=== PATIENT | female | born 1955 | race Caucasian/White ===

== ENCOUNTER 2018-12-15 16:33 | Outpatient (REF) | payer MEDICARE, SELFPAY ==
[2018-12-15 19:18] LABS: HCT 42.5 % (36.0-46.0); HGB 13.8 g/dL (12.0-15.5); Mean Corp. HGB Concentration 32.5 g/dL (32.0-36.0); Mean Corpuscular Hemoglobin 30.9 pg (27.0-33.0); Mean Corpuscular Volume 95.3 fL (80-95); Mean Platelet Volume 10.1 fL (8.0-11.0); Platelet Count 316 x1000/uL (130-400); RBC 4.46 m/cumm (4.00-5.20); RBC Distribution Width 14.2 % (11.7-14.6); White Blood Cell Count 10.32 k/cumm (4.4-10.8)
[2018-12-15 19:25] LABS: Anion Gap 9.7 mmol/L (3-11); BUN 14 mg/dL (7-18); CO2 25.3 mmol/L (21.0-32.0); Calcium 9.1 mg/dL (8.5-10.1); Chloride 104 mmol/L (98-107); Glucose 102 mg/dL (70-100); Potassium 4.3 mmol/L (3.5-5.1); Sodium 139 mmol/L (136-145)
== END 2018-12-15 16:53 ==
LOC: NCHCN 16:33
PROVIDERS: PCP Internal Medicine; Visit Provider Physician Assistant Medical
DX: R06.02 Shortness of breath (principal)
CPT/HCPCS: 80048; 85027

== ENCOUNTER 2019-06-09 11:21 | Outpatient (REF) | payer MEDICARE, SELFPAY ==
[2019-06-09 19:06] LABS: Anion Gap 9.5 mmol/L (3-11); BUN 16 mg/dL (7-18); CO2 29.5 mmol/L (21.0-32.0); CREATININE 1.07 mg/dL (0.55-1.02); Calculated LDL 204 mg/dL; Chloride 101 mmol/L (98-107); Cholesterol 304 mg/dL (<200); Estimated GFR 51.47 (mL/min/1.73m2); Glucose 113 mg/dL (74-106); HDL Cholesterol 53 mg/dL (40-60); Potassium 4.6 mmol/L (3.5-5.1); Sodium 140 mmol/L (136-145); TSH 3.41 uIU/mL (0.36-3.74); Triglyceride 235 mg/dL (<150)
== END 2019-06-09 11:41 ==
LOC: NCHCN 11:21
PROVIDERS: PCP Internal Medicine; Visit Provider Nurse Practitioner Family
DX: E78.5 Hyperlipidemia, unspecified (principal); R00.2 Palpitations
CPT/HCPCS: 80048; 80061; 84443

== ENCOUNTER 2020-03-25 13:13 | Outpatient (REF) | payer MEDICARE, SELFPAY ==
[2020-03-25 19:49] LABS: ALT 187 U/L (14-59); AST 100 U/L (15-37); Albumin 3.6 g/dL (3.4-5.0); Alkaline Phosphatase 411 U/L (46-116); Anion Gap 6.6 mmol/L (3-11); BUN 19 mg/dL (7-18); Bilirubin, Total 0.4 mg/dL (0.2-1.0); CO2 29.4 mmol/L (21.0-32.0); CREATININE 1.01 mg/dL (0.55-1.02); Calcium 9.2 mg/dL (8.5-10.1); Calculated LDL 87 mg/dL (<100); Chloride 105 mmol/L (98-107); Cholesterol 159 mg/dL (<200); Estimated GFR 54.84 (mL/min/1.73m2); Glucose 97 mg/dL (74-106); HDL Cholesterol 60 mg/dL (40-60); Potassium 4.3 mmol/L (3.5-5.1); Sodium 141 mmol/L (136-145); TSH (W/Ref FT4) 2.12 uIU/mL (0.36-3.74); Total Protein 6.8 g/dL (6.4-8.2); Triglyceride 64 mg/dL (<150)
== END 2020-03-25 13:33 ==
LOC: NCHCN 13:13
PROVIDERS: PCP Internal Medicine; Visit Provider Physician Assistant
DX: E78.5 Hyperlipidemia, unspecified (principal); I10 Essential (primary) hypertension
CPT/HCPCS: 80053; 80061; 84443

== ENCOUNTER 2020-04-01 19:31 | Outpatient (REF) | payer MEDICARE, SELFPAY ==
[2020-04-01 19:22] LABS: Iron 106 ug/dL (50-170); Total Iron Binding Capacity 294 ug/dL (250-450); Transferrin Sat 36 % (15-50)
[2020-04-01 19:59] LABS: Ferritin 227 ng/mL (8-252); GGT 308 U/L (5-55)
[2020-04-04 14:37] LABS: Hepatitis A Antibody IgM Negative (Negative); Hepatitis B Core Antibody Negative (Negative); Hepatitis B surface Ag Negative (Negative); Hepatitis C Ab w Rflx HCV PCR Negative (Negative)
[2020-04-04 15:09] LABS: ANA Interpretation Positive (Negative); ANA Titer Pattern 1:320 Homogeneous
[2020-04-05 15:07] LABS: Smooth Muscle Ab Screen Negative (Negative)
[2020-04-08 15:01] LABS: Mitochondrial Ab, M2 <0.1 U
== END 2020-04-01 19:51 ==
LOC: NCHCN 19:31
PROVIDERS: PCP Internal Medicine; Visit Provider Physician Assistant
DX: R74.8 Abnormal levels of other serum enzymes (principal)
CPT/HCPCS: 83516; 86704; 86709; 86803; 87340; 82728; 82977; 83540; 83550; 86038; 86255

== ENCOUNTER 2020-05-17 12:24 | Outpatient (REF) | payer MEDICARE, SELFPAY ==
[2020-05-17 20:39] LABS: ALT 71 U/L (14-59); AST 44 U/L (15-37); Albumin 3.8 g/dL (3.4-5.0); Alkaline Phosphatase 267 U/L (46-116); BUN 15 mg/dL (7-18); Bilirubin, Total 0.5 mg/dL (0.2-1.0); CREATININE 1.06 mg/dL (0.55-1.02); Calcium 9.3 mg/dL (8.5-10.1); Chloride 103 mmol/L (98-107); Estimated GFR 51.86 (mL/min/1.73m2); Glucose 98 mg/dL (74-106); Sodium 140 mmol/L (136-145); Total Protein 6.9 g/dL (6.4-8.2)
== END 2020-05-17 12:44 ==
LOC: NCHCN 12:24
PROVIDERS: PCP Internal Medicine; Visit Provider Physician Assistant
DX: K75.4 Autoimmune hepatitis (principal)
CPT/HCPCS: 80053

== ENCOUNTER 2020-05-27 06:08 | Day surgery (SDC) | payer MEDICARE, SELFPAY ==
[2020-05-27 06:15] VITALS: BP 123/73; PULSE 71; RESP 18; TEMP 37; O2SAT 96
[2020-05-27] MEDS: Tropicam./Phenyleph. (1/2.5%) 5 ML BTL ×3 (06:38→06:46)
[2020-05-27] MEDS: Lidocaine 1% Pres-Free 5 ML VIAL (07:32)
[2020-05-27] MEDS: Balanced Salt Soln.-PLUS 500 ML BAG (07:32)
[2020-05-27] MEDS: Moxifloxacin-PF 1 MG/ML VIAL (07:33)
[2020-05-27] MEDS: Lidocaine 2% Jelly 6 ML SYR (07:34)
[2020-05-27] MEDS: Povidone-Iodine Ophth 30 ML BTL (07:35)
[2020-05-27] MEDS: Duovisc Viscoelastic System EACH 1 EACH (07:35)
[2020-05-27] MEDS: Tetracaine 0.5% 4 ML BTL (07:36)
--- NOTE | 2020-05-27 07:56 | W.PM.DSUDISC ---
Discharge Plan Disposition Patient Disposition: HOME Condition: Good Discharge Details Attending Provider: Enrike Stoner Primary Care Provider: Carlie Davenport Home Meds and New Rx's Prescriptions: No Action atorvastatin 40 mg Tablet 40 mg PO HS RF: 0 ibuprofen 800 mg Tablet 800 mg PO Q8H PRN RF: 0 benzonatate 100 mg Capsule 100 mg PO Q8H PRNRF: 0 triamterene-hydrochlorothiazid 37.5-25 mg Tablet 1 tab PO DAILY RF: 0 albuterol sulfate [Ventolin HFA] 90 mcg/actuation Hfa Aerosol Inhaler 1 - 2 puff INHALATION DIRECTED RF: 0 omeprazole 20 mg Tablet,Delayed Release (Dr/Ec) 20 mg PO DAILY RF: 0 Discharge Instructions Stand Alone Forms: Post-op Topical Cataract, Little Lombardi (DSU) Discharge Orders Discharge Orders: Discharge Order (Routine); Ordered 05/27/20 Ordered By: Enrike Stoner DS: Diagnosis Discharge Diagnosis (1) Nuclear sclerotic cataract of right eye: Status: Resolved
--- NOTE | 2020-05-27 07:57 | ROE_ITS ---
Date of service: 05/27/20 Time of Service: 07:57 Operative Note Operative Note DATE OF PROCEDURE: 05/27/20 PRE-OP DIAGNOSIS: Nuclear cataract, right eye POST-OP DIAGNOSIS: same PROCEDURE: Cataract extraction using phacoemulsification with intraocular lens implant, right eye SURGEON: Enrike Stoner ANESTHESIA: MAC and local (sub-tenon's anesthetic infiltration) ESTIMATED BLOOD LOSS: 0 PATHOLOGY: none sent COMPLICATIONS: None Patient was transported to: same day Patient's condition: stable Implants: Daniel and Daniel Vision / [employer] Tecnis ZCB00 intr aocular lens Indications: Progressive decreased vision due to cataract, right eye Procedure Description: CATARACT SURGERY OPERATIVE REPORT PREOPERATIVE DIAGNOSIS: Nuclear cataract, right eye POSTOPERATIVE DIAGNOSIS: Same OPERATION: Cataract extraction using phacoemulsification with posterior chamber intraocular lens implant, right eye. IOL: IOL Senior National Account Manager/Model: J&J Vision / ZEHRA Tecnis ZCB00 IOL Power: + 22.50 diopters IOL Serial Number: [id number] Optic Diameter: 6.0mm Haptic/Overall Diameter: 13.0mm PHACO INFO: Fadi [employer] Pharmaceuticalurion Vision System with OZil and Active Fluidics Cumulative Dispersed Energy (CDE): 4.86 seconds SURGEON: Enrike Stoner MD, EMILY ANESTHESIA: Monitored Anesthesia Care (MAC), with local sub-tenon's anesthetic infiltration COMPLICATIONS: None SPECIMENS: None INDICATIONS FOR PROCEDURE: The patient is a 74-year-old lady with history of diminished visual acuity in the development of nuclear cataract. She is significantly symptomatic cataract surgery and attempt to improve and maximize her vision. PROCEDURE: The correct surgical eye was identified and marked as the right eye and the pupil was dilated in the preoperative area using mydriatics and cycloplegics. The dilated pupil size was 6.5 mm. Oral sedation was administered in the form of an Imprimis MKO Melt (midazolam 3mg/ketamine 25mg/ondansetron 2mg). The patient was brought to the operating room where cardiopulmonary monitoring was instituted and surgical time-out was performed, confirming the correct operative eye and IOL power. Topical anesthesia was administered and ophthalmic povidone-iodine 5% was instilled into the conjunctival fornices. Lidocaine gel was applied to the cornea and the dionne-ocular area was prepped with Betadine 10% solution and draped in the usual sterile fashion for intraocular surgery, including an aperture drape. A Tegaderm transparent film dressing was cut in half and used to cover the lashes and lid margins. Care was taken to sequester the lashes and lid margins under the Tegaderm dressing. A lid speculum was placed between the lids of the operative eye and the Denny-Tulio operating microscope was maneuvered into position. Jeanne scissors were then used to make a conjunctival buttonhole approximately 6mm posterior to the limbus in the inferonasal quadrant. Blunt dissection was carried out to expose bare sclera, and a blunt-tipped sub-tenon?s anesthesia cannula was introduced and passed posteriorly along the globe where non- preserved plain lidocaine was injected into posterior sub-Tenon?s space. A sideport knife was used to make a paracentesis port inferiortemporally. Intraocular phenylephrine/lidocaine was injected into the anterior chamber. The anterior chamber was then filled with viscoelastic. A 2.4mm keratome knife was used to create a half-thickness groove at the limbus and then to construct a three-plane near-clear corneal tunnel extending 2.0mm into clear cornea in the superiortemporal position. . A flap was raised on the anterior capsule and capsulorhexis forceps were used to complete a continuous curvilinear capsulorhexis of 5.0 mm. Balanced salt solution was then used to perform cortical cleaving hydrodissection and nuclear hydrodelineation until the lens could be freely rotated within the capsular bag. The lens nucleus was then disassembled and removed within the capsular bag and iris plane using phacoemulsification. Residual cortical material was removed using the I/A handpiece. The posterior capsule was carefully polished to remove as much residual lens epithelial cells as safely possible. The capsular bag was then inflated and the anterior chamber deepened with viscoelastic. The lens implant described above was inserted into the capsular bag using the ZEHRA [place] Injector. A Kuglen hook was used to dial the IOL into position. Residual viscoelastic was then removed first from posterior to the IOL, then from the anterior chamber using the I/A handpiece. The lens implant was noted to center nicely within the capsular bag. The incisions were stromally hydrated, and the anterior chamber was reformed using BSS. Then 0.5cc of moxifloxacin 1.0mg/ml were injected into the capsular bag and anterior chamber. The incisions were checked with a Weck spear and found to be secure. Several drops of ophthalmic povidone-iodine 5% were then applied to the eye followed by two drops of Imprimis combination prednisolone/moxifloxacin/nepafenac solution. The drapes were removed and a clear plastic protective eye shield was placed over the eye. The patient was then returned to Same Day Surgery in stable condition.
[2020-05-27 08:22] VITALS: BP 132/74; PULSE 69; RESP 16; TEMP 37; O2SAT 98
== END 2020-05-27 08:35 | disposition home or self-care (01) ==
PROVIDERS: PCP Nurse Practitioner Family; Visit Provider Ophthalmology
PROC: (CPT 66984; principal; 2020-05-27 07:30)
DX: H25.11 Age-related nuclear cataract, right eye (principal)
CPT/HCPCS: 66984; V2632

== ENCOUNTER 2020-06-10 10:01 | Day surgery (SDC) | payer MEDICARE, SELFPAY ==
[2020-06-10 10:21] VITALS: BP 144/78; PULSE 64; RESP 16; TEMP 36.6; O2SAT 98
[2020-06-10] MEDS: Tropicam./Phenyleph. (1/2.5%) 5 ML BTL OS ×3 (10:25→10:34)
[2020-06-10] MEDS: Lidocaine 2% Jelly 6 ML SYR (11:27)
[2020-06-10] MEDS: Tetracaine 0.5% 4 ML BTL OS (11:28)
[2020-06-10] MEDS: Povidone-Iodine Ophth 30 ML BTL (11:31)
[2020-06-10] MEDS: Moxifloxacin-PF 1 MG/ML VIAL (11:31)
[2020-06-10] MEDS: Balanced Salt Soln.-PLUS 500 ML BAG (11:31)
[2020-06-10] MEDS: Lidocaine 1% Pres-Free 5 ML VIAL (11:31)
[2020-06-10] MEDS: Duovisc Viscoelastic System EACH 1 EACH (11:31)
--- NOTE | 2020-06-10 12:54 | W.PM.DSUDISC ---
Discharge Plan Disposition Patient Disposition: HOME Condition: Good Discharge Details Attending Provider: Enrike Stoner Primary Care Provider: Carlie Davenport Home Meds and New Rx's Prescriptions: No Action atorvastatin 40 mg Tablet 40 mg PO HS RF: 0 ibuprofen 800 mg Tablet 800 mg PO Q8H PRN RF: 0 benzonatate 100 mg Capsule 100 mg PO Q8H PRNRF: 0 triamterene-hydrochlorothiazid 37.5-25 mg Tablet 1 tab PO HS RF: 0 albuterol sulfate [Ventolin HFA] 90 mcg/actuation Hfa Aerosol Inhaler 1 - 2 puff INHALATION DIRECTED RF: 0 omeprazole 20 mg Tablet,Delayed Release (Dr/Ec) 20 mg PO HS RF: 0 Discharge Instructions Stand Alone Forms: Post-op Topical Cataract, Little Lombardi (DSU) Discharge Orders Discharge Orders: Discharge Order (Routine); Ordered 06/10/20 Ordered By: Enrike Stoner Discharge Data Discharge Date/Time-TO BE ENTERED AT DEPARTURE: 06/10/20 12:21 Discharge Comment: Pt escorted out to vehicle. DS: Diagnosis Discharge Diagnosis (1) Nuclear sclerotic cataract of left eye: Status: Resolved
--- NOTE | 2020-06-10 12:55 | ROE_ITS ---
Date of service: 06/10/20 Time of Service: 12:55 Operative Note Operative Note DATE OF PROCEDURE: 06/10/20 PRE-OP DIAGNOSIS: Nuclear cataract, left eye POST-OP DIAGNOSIS: same PROCEDURE: Cataract extraction using phacoemulsification with intraocular lens implant, left eye SURGEON: Enrike Stoner ANESTHESIA: MAC and local (sub-tenon's anesthetic infiltration) PATHOLOGY: none sent COMPLICATIONS: None Patient was transported to: same day Patient's condition: stable Implants: Daniel and Daniel Vision / [employer] Opt[employer] Tecnis ZCB00 Indications: Progressive decreased vision due to cataract, left eye Procedure Description: CATARACT SURGERY OPERATIVE REPORT PREOPERATIVE DIAGNOSIS: Nuclear cataract, left eye POSTOPERATIVE DIAGNOSIS: Same OPERATION: Cataract extraction using phacoemulsification with posterior chamber intraocular lens implant, left eye. IOL: IOL Healthcare Interpreter/Model: J&J Vision / ZEHRA Tecnis ZCB00 IOL Power: + 23.0 diopters IOL Serial Number: [id number] Optic Diameter: 6.0mm Haptic/Overall Diameter: 13.0mm PHACO INFO: Fadi [employer]urion Vision System with OZil and Active Fluidics Cumulative Dispersed Energy (CDE): 5.48 seconds SURGEON: Enrike Stoner MD, EMILY ANESTHESIA: Monitored Anesthesia Care (MAC), with local sub-tenon's anesthetic infiltration COMPLICATIONS: None SPECIMENS: None INDICATIONS FOR PROCEDURE: Patient is a 64-year-old lady with history of diminished visual acuity in both eyes secondary to the development of bilateral nuclear cataract. She has already undergone cataract surgery in her right eye and is doing well postoperatively. She now presents for cataract surgery in the left eye. PROCEDURE: The correct surgical eye was identified and marked as the left eye and the pupil was dilated in the preoperative area using mydriatics and cycloplegics. The dilated pupil size was 6.0 mm. No oral sedation was given. The patient was brought to the operating room where cardiopulmonary monitoring was instituted and surgical time-out was performed, confirming the correct operative eye and IOL power. Topical anesthesia was administered and ophthalmic povidone-iodine 5% was instilled into the conjunctival fornices. Lidocaine gel was applied to the cornea and the dionne-ocular area was prepped with Betadine 10% solution and draped in the usual sterile fashion for intraocular surgery, including an aperture drape. A Tegaderm transparent film dressing was cut in half and used to cover the lashes and lid margins. Care was taken to sequester the lashes and lid margins under the Tegaderm dressing. A lid speculum was placed between the lids of the operative eye and the Denny-Tulio operating microscope was maneuvered into position. Jeanne scissors were then used to make a conjunctival buttonhole approximately 6mm posterior to the limbus in the inferonasal quadrant. Blunt dissection was carried out to expose bare sclera, and a blunt-tipped sub-tenon?s anesthesia cannula was introduced and passed posteriorly along the globe where non- preserved plain lidocaine was injected into posterior sub-Tenon?s space. A sideport knife was used to make a paracentesis port superior/superiortemporally. Intraocular phenylephrine/lidocaine was injected into the anterior chamber. The anterior chamber was then filled with viscoelastic. A 2.4mm keratome knife was used to create a half-thickness groove at the limbus and then to construct a three-plane near-clear corneal tunnel extending 2.0mm into clear cornea in the temporal position. . A flap was raised on the anterior capsule and capsulorhexis forceps were used to complete a continuous curvilinear capsulorhexis of 5.0 mm. Balanced salt solution was then used to perform cortical cleaving hydrodissection and nuclear hydrodelineation until the lens could be freely rotated within the capsular bag. The lens nucleus was then disassembled and removed within the capsular bag and iris plane using phacoemulsification. Residual cortical material was removed using the 45-degree angled silicone I/A tip with 0.3mm port. The posterior capsule was carefully polished to remove as much residual lens epithelial cells as safely possible. The capsular bag was then inflated and the anterior chamber deepened with viscoelastic. The lens implant described above was inserted into the capsular bag using the ZEHRA [place] Injector. A Kuglen hook was used to dial the IOL into position. Residual viscoelastic was then removed first from posterior to the IOL, then from the anterior chamber using the I/A handpiece. The lens implant was noted to center nicely within the capsular bag. The incisions were stromally hydrated, and the anterior chamber was reformed using BSS. Then 0.5cc of moxifloxacin 1.0mg/ml were injected into the capsular bag and anterior chamber. The incisions were checked with a Weck spear and found to be secure. Several drops of ophthalmic povidone-iodine 5% were then applied to the eye followed by two drops of Imprimis combination prednisolone/moxifloxacin/nepafenac solution. The drapes were removed and a clear plastic protective eye shield was placed over the eye. The patient was then returned to Same Day Surgery in stable condition.
== END 2020-06-10 12:21 | disposition home or self-care (01) ==
LOC: SUR 10:01
PROVIDERS: PCP Nurse Practitioner Family; Visit Provider Ophthalmology
PROC: (CPT 66984; principal; 2020-06-10 12:00)
DX: H25.12 Age-related nuclear cataract, left eye (principal); Z98.41 Cataract extraction status, right eye; Z96.1 Presence of intraocular lens
CPT/HCPCS: 66984; V2632

== ENCOUNTER 2020-07-18 14:33 | Outpatient (REF) | payer MEDICARE, SELFPAY ==
[2020-07-18 19:14] LABS: ALT 60 U/L (14-59); AST 35 U/L (15-37); Albumin 3.4 g/dL (3.4-5.0); Alkaline Phosphatase 150 U/L (46-116); Bilirubin, Total 0.3 mg/dL (0.2-1.0); Total Protein 6.4 g/dL (6.4-8.2)
[2020-07-18 20:07] LABS: Bilirubin, Direct 0.09 mg/dL (0.00-0.20)
== END 2020-07-18 14:53 ==
LOC: LBN 14:33
PROVIDERS: PCP Internal Medicine; Visit Provider Internal Medicine Gastroenterology
DX: R74.8 Abnormal levels of other serum enzymes (principal)
CPT/HCPCS: 80076

== ENCOUNTER 2020-08-24 15:12 | Outpatient (REF) | payer MEDICARE, SELFPAY ==
[2020-08-24 16:24] LABS: ALT 50 U/L (14-59); AST 25 U/L (15-37); Albumin 3.7 g/dL (3.4-5.0); Alkaline Phosphatase 160 U/L (46-116); Bilirubin, Direct 0.12 mg/dL (0.00-0.20); Bilirubin, Total 0.4 mg/dL (0.2-1.0); Total Protein 7.1 g/dL (6.4-8.2)
== END 2020-08-24 15:13 | disposition home or self-care (01) ==
LOC: NCHCN 15:12
PROVIDERS: PCP Internal Medicine; Visit Provider Internal Medicine Gastroenterology
DX: K71.9 Toxic liver disease, unspecified (principal); R74.8 Abnormal levels of other serum enzymes
CPT/HCPCS: 80076

== ENCOUNTER 2020-09-29 22:10 | Outpatient (REF) | payer MEDICARE, SELFPAY ==
[2020-09-29 19:45] LABS: ALT 63 U/L (14-59); AST 30 U/L (15-37); Albumin 3.6 g/dL (3.4-5.0); Alkaline Phosphatase 172 U/L (46-116); Bilirubin, Direct 0.1 mg/dL (0.0-0.2); Bilirubin, Total 0.4 mg/dL (0.2-1.0); Total Protein 6.8 g/dL (6.4-8.2)
== END 2020-09-29 22:11 | disposition home or self-care (01) ==
LOC: NCHCN 22:10
PROVIDERS: PCP Internal Medicine; Visit Provider Internal Medicine Gastroenterology
DX: K71.9 Toxic liver disease, unspecified (principal); R74.8 Abnormal levels of other serum enzymes
CPT/HCPCS: 80076

== ENCOUNTER 2020-11-03 10:49 | Outpatient (REF) | payer MEDICARE, SELFPAY ==
--- OUTSIDE RECORDS SUMMARY | 2020-11-03 10:55 | XMS_ITS ---
:1955 Author Care Team Providers Name Role Phone PREETI KOWALSKI NP Primary Care Provider [phone] MONI TAI MD General Surgeon [phone] Allergies Code Code System Name Reaction Severity Status Onset NKDA ? Medications Name Status Start Date Stop Date ? ? Anoro Ellipta 62.5 mcg-25 mcg/actuation Completed ? 05/18/2020 powder for inhalation atorvastatin 40 mg tablet Active ? Not av ailable TAKE ONE TABLET BY MOUTH AT BEDTIME azithromycin 250 mg tablet Completed ? 05/18 Breo Ellipta 100 mcg-25 mcg/dose powder Completed ? 05/18/2020 for inhalation clindamycin HCl 300 mg capsule Active ? N ot available Take 1 capsule every 6 hours by oral route. cyclobenzaprine 10 mg tablet Completed ? 05/2020 Take 1 tablet 3 times a day by oral route as needed. hydrocodone 5 mg-acetaminophen 325 mg tablet Active ? Not available Take 1 tablet every 6 hours by oral route. ibuprofen 800 mg tablet Active ? Not avai lable Take 1 tablet 3 times a day by oral route as needed. Incruse Ellipta 62.5 mcg/actuation Completed ? 05/18/2020 powder for inhalation naproxen 500 mg tablet Completed ? 0 Take 1 tablet twice a day by oral route as needed. omeprazole 20 mg capsule,delayed release Active ? Not available Take 1 capsule every day by oral route. prednisone 10 mg tablet Completed ? 05/18/20 20 Tessalon Perles 100 mg capsule Active ? N ot available Take 1 capsule every 8 hours by oral route as needed. triamterene 37.5 mg-hydrochlorothiazide 25 mg capsule Active ? Not available TAKE ONE CAPSULE BY MOUTH EVERY DAY Tylenol-Codeine #3 300 mg-30 mg tablet Completed ? 05/18/2020 Take 1 tablet every 6 hours by oral route at bedtime. Ventolin HFA 90 mcg/actuation aerosol inhaler Active ? Not available INHALE ONE TO TWO PUFFS BY MOUTH EVERY 4 6 HOURS NEEDED FOR SHORTNESS OF BREATH / WHEEZE / COUGH Problems Name Status Onset Date Source ? Hyperlipidemia Active 05/18/2020 ? Cataract Active 05/18/2020 ? Hypertensive Disorder Active 05/18/2020 ? Asthma Active 05/18/2020 ? Autoimmune Hepatitis Active 05/18/2020 ? Prediabetes Active 05/18/2020 ? Alkaline Phosphatase Raised Active 05/18/2020 ? Elevated Liver Enzymes Level Active 05/18/2020 ? Palpation Active 05/18/2020 ? History of Polyp of Colon Active ? Histor y Procedures Date Name Performed by ? 12/03/2013 Colonoscopy Information not avai lable Notes: colon polyps 10/17/2004 10/17/2004 EGD/Endoscopy Information not avai lable ? Appendectomy Information not avai lable ? Hysterectomy Information not avai lable ? Tonsillectomy Information not avai lable Results Lab Results Date Name Specimen Result Interpretation Description Value Range Status Address ? 12/23/2017 CBC W/ BLD - Wbc 8.5 5.0-10.0 Final [facility] Auto Diff 10*3/uL 10*3/uL Hospi eren Lab (Internal) : [address] ? ? BLD - Rbc 4.25 4.10-5.[address] [facility] ountry 10*6/uL 10*6/uL Hospital Lab (Internal) : [address] ? ? BLD - Hgb 13.3 g/dL 12.0-16.0 Final [facility] g/dL Hospital L ab (Internal) : [address] ? ? BLD - Hct 41.4 % 37.0-47.[address] [facility] ount % Hospital L ab (Internal) : [address] ? ? BLD High Mcv 97.4 fL 80.0-96.0 Final [facility] fL Hospital L ab (Internal) : [address] ? ? BLD - Mch 31.3 pg 26.0-32.0 Final [facility] pg Hospital L ab (Internal) : [address] ? ? BLD - Mchc 32.1 g/dL 31.0-35.0 Final [facility] g/dL Hospital L ab (Internal) : [address] t ? ? BLD - Rdw 13.5 % 11.5-14.[address] [facility] ount % Hospital L ab (Internal) : [address] ? ? BLD - Plt 264 130-450 Final [facility] ntry 10*3/uL 10*3/uL Hospital Lab (Internal) : [address] ? ? BLD - Anc 5.45 ? Final [facility] try 10*3/uL Hospital Lab (Internal) : [address] ? ? BLD - Neutro 64.3 % 40.0-75.0 Final [facility] % Hospital L ab (Internal) : [address] ? ? BLD - Lymph 29.2 % 20.0-50.[address] [facility] % Hospital L ab (Internal) : [address], [place] ? ? BLD - [place] 5.2 % 2.0-10.0 % Final [facility] Hospital L ab (Internal) : [address], [place] ? ? BLD Low Eos 0.5 % 1.0-6.0 % Final [facility] Hospital L ab (Internal) : [address] [place] [place] ? ? BLD - Baso 0.4 % 0.0-1.0 % Final [facility] L ab (Internal) : [address] [place] ? ? BLD - Ig 0.4 % 0.0-0.9 % Final [facility] L ab (Internal) : [address], [place] 12/23/2017 BMP, S - g/r 93 mg/dL 74-106 Final [facility] Serum or mg/dL Hospital Lab Plasma (Internal) : [address], [place] ? ? S - Bun 14 mg/dL 7-17 mg/dL Final [facility] Hospital L ab (Internal) : [address] ? ? S - Crea 0.80 0.52-1.04 Final [facility] mg/dL mg/dL Hospital L ab (Internal) : [address] t ? ? S - Ca 9.1 mg/dL 8.4-10.2 Final [place] mg/dL Hospital L ab (Internal) : [address] t ? ? S - Na 139 137-145 [facility] [place] [facility] mmol/L mmol/L Hospital L ab (Internal) : [address] t ? ? S - K 4.5 3.5-5.1 Final [place] [facility] mmol/L mmol/L Hospital L ab (Internal) : [address] t ? ? S - Cl 106 98-107 Final [place] [facility] mmol/L mmol/L Hospital L ab (Internal) : [address] ? ? S - Tco2 23.0 22.0-30.0 [facility] mmol/L mmol/L Hospital L ab (Internal) : [address] t 12/23/2017 D-dimer, PLASMA - Dimq 0.23 mg/L 0.00-0.50 Final [place] Quant, mg/L Hospital L ab Plasma (Internal) : [address] 05/19/2017 Lipase, S ? Lip 41 U/L 23-300 U/L Final [facility] Serum or Hospital Lab Plasma (Internal) : [address] 05/19/2017 CMP, S ? g/r 98 mg/dL 74-106 Final [facility] Serum or mg/dL Hospital Lab Plasma (Internal) : [address] t ? ? S ? Bun 13 mg/dL 7-17 mg/dL Final [facility] Hospital L ab (Internal) : [address] t ? ? S ? Crea 0.80 0.52-1.04 Final [place] [facility] mg/dL mg/dL Hospital L ab (Internal) : [address] t ? ? S ? Ca 9.4 mg/dL 8.4-10.2 Final [place] mg/dL Hospital L ab (Internal) : [address] t ? ? S ? Na 142 137-145 Final [place] [facility] mmol/L mmol/L Hospital L ab (Internal) : [address] t ? ? S ? K 3.7 3.5-5.1 Final [place] [facility] mmol/L mmol/L Hospital L ab (Internal) : [address] t ? ? S ? Cl 106 98-107 Final [facility] try mmol/L mmol/L Hospital L ab (Internal) : [address] t ? ? S ? Tco2 24.0 22.0-30.[address] [facility] ountry mmol/L mmol/L Hospital L ab (Internal) : [address] t ? ? S ? Tp 7.1 g/dL 6.3-8.[address] [facility] ountry g/dL Hospital L ab (Internal) : [address] t ? ? S ? Alb 4.1 g/dL 3.5-5.[address] [facility]untry g/dL Hospital L ab (Internal) : [address] t ? ? S ? Tbil 0.5 mg/dL 0.2-1.3 Final [facility] mg/dL Hospital L ab (Internal) : [address] t ? ? S High Alp 138 U/L 38-126 U/L Final [facility] Hospital L ab (Internal) : [address] t ? ? S ? Alt 46 U/L 9-52 U/L Final [facility] unt (Sgpt) Hospital L ab (Internal) : [address] t ? ? S ? Ast 24 U/L 14-36 U/L Final [facility] ount (Sgot) Hospital L ab (Internal) : [address] t 05/19/2017 CBC W/ BLD ? Wbc 7.3 5.0-10.0 Final [facility] Auto Diff 10*3/uL 10*3/uL Hospi eren Lab (Internal) : [address] t ? ? BLD ? Rbc 4.38 4.10-5.[address] [facility] ountry 10*6/uL 10*6/uL Hospital Lab (Internal) : [address] t ? ? BLD ? Hgb 13.8 g/dL 12.0-16.0 Final [facility] g/dL Hospital L ab (Internal) : [address] t ? ? BLD ? Hct 41.5 % 37.0-47.[address] [facility] ount % Hospital L ab (Internal) : [address] ? ? BLD ? Mcv 94.7 fL 80.0-96.0 Final [facility] fL Hospital L ab (Internal) : [address] ? ? BLD ? Mch 31.5 pg 26.0-32.0 Final [facility] pg Hospital L ab (Internal) : [address] ? ? BLD ? Mchc 33.3 g/dL 31.0-35.0 Final [facility] g/dL Hospital L ab (Internal) : [address] ? ? BLD ? Rdw 13.2 % 11.5-14.[address] [facility] ount % Hospital L ab (Internal) : [address] ? ? BLD ? Plt 298 130-450 Final [facility] ntry 10*3/uL 10*3/uL Hospital Lab (Internal) : [address] ? ? BLD ? Anc 3.92 ? Final [facility] try 10*3/uL Hospital Lab (Internal) : [address] ? ? BLD ? Neutro 53.6 % 40.0-75.0 Final [facility] % Hospital L ab (Internal) : [address] ? ? BLD ? Lymph 38.2 % 20.0-50.0 Final [facility] % Hospital L ab (Internal) : [address] ? ? BLD ? [place] 6.8 % 2.0-10.0 % Final [facility] Hospital L ab (Internal) : [address] ? ? BLD Low Eos 0.5 % 1.0-6.0 % Final [facility] Hospital L ab (Internal) : [address] ? ? BLD ? Baso 0.5 % 0.0-1.0 % Final [facility] Hospital L ab (Internal) : [address] ? ? BLD ? Ig 0.4 % 0.0-0.9 % Final [facility] Hospital L ab (Internal) : [address] Past Encounters 05/19/2020 Screening for Malignant Neoplasm of [place] n; Abdominal Pain Moni Tai MD: [address], [place] [address], Ph. Social History Tobacco Smoking Status Former Smoker Notes: quit 24 01 Vaccine List None recorded. Plan of Care Reminders Provider Appointments None ? ? recorded. Lab None ? ? recorded. Referral None ? ? recorded. Procedures None ? ? recorded. Surgeries None ? ? recorded. Imaging None ? ? recorded. Vitals 05/19/2020 12:30PM Office 15 Height Weight BMI Blood Pressure 156.21 cm 87.54 kg 35.9 kg/m2 140/72 mm[Hg] 05/17/2020 Height Weight BMI Blood Pressure 156.21 cm 87.54 kg 35.9 kg/m2 128/78 mm[Hg]
[2020-11-03 15:40] LABS: ALT 38 U/L (14-59); AST 17 U/L (15-37); Albumin 3.5 g/dL (3.4-5.0); Alkaline Phosphatase 140 U/L (46-116); Bilirubin, Direct 0.1 mg/dL (0.0-0.2); Bilirubin, Total 0.4 mg/dL (0.2-1.0); Total Protein 6.7 g/dL (6.4-8.2)
== END 2020-11-03 10:50 | disposition home or self-care (01) ==
LOC: LBN 10:49
PROVIDERS: PCP Nurse Practitioner Family; Visit Provider Internal Medicine Gastroenterology
DX: K71.9 Toxic liver disease, unspecified (principal); R74.8 Abnormal levels of other serum enzymes
CPT/HCPCS: 80076

== ENCOUNTER 2021-03-30 16:12 | Outpatient (REF) | payer MEDICARE, SELFPAY ==
[2021-03-30 19:32] LABS: ALT 39 U/L (14-59); AST 23 U/L (15-37); Albumin 3.5 g/dL (3.4-5.0); Alkaline Phosphatase 150 U/L (46-116); Anion Gap 6.8 mmol/L (3-11); BUN 18 mg/dL (7-18); Bilirubin, Total 0.6 mg/dL (0.2-1.0); CO2 29.2 mmol/L (21.0-32.0); CREATININE 1.1 mg/dL (0.55-1.02); Calcium 8.9 mg/dL (8.5-10.1); Chloride 106 mmol/L (98-107); Estimated GFR 49.54 (mL/min/1.73m2); Glucose 98 mg/dL (74-106); Potassium 4.3 mmol/L (3.5-5.1); Sodium 142 mmol/L (136-145); Total Protein 6.5 g/dL (6.4-8.2)
[2021-04-01 14:13] LABS: Mitochondrial Ab, M2 <0.1 U
== END 2021-03-30 16:13 | disposition home or self-care (01) ==
LOC: NCHCN 16:12
PROVIDERS: PCP Internal Medicine; Visit Provider Physician Assistant
DX: R74.8 Abnormal levels of other serum enzymes (principal); Z83.79 Family history of other diseases of the digestive system
CPT/HCPCS: 80053; 83516

== ENCOUNTER 2021-09-27 20:38 | Outpatient (REF) | payer MEDICARE, SELFPAY ==
[2021-09-27 20:28] LABS: ALT 38 U/L (14-59); AST 23 U/L (15-37); Albumin 3.5 g/dL (3.4-5.0); Alkaline Phosphatase 122 U/L (46-116); Bilirubin, Direct 0.1 mg/dL (0.0-0.2); Bilirubin, Total 0.5 mg/dL (0.2-1.0); Total Protein 6.5 g/dL (6.4-8.2)
== END 2021-09-27 20:39 | disposition home or self-care (01) ==
LOC: LBN 20:38
PROVIDERS: PCP Internal Medicine; Visit Provider Internal Medicine Gastroenterology
DX: R74.8 Abnormal levels of other serum enzymes (principal); K71.9 Toxic liver disease, unspecified
CPT/HCPCS: 80076

== ENCOUNTER 2022-03-28 16:00 | Outpatient (REF) | payer MEDICARE, SELFPAY ==
[2022-03-28 20:29] LABS: ALT 34 U/L (14-59); AST 21 U/L (15-37); Albumin 3.5 g/dL (3.4-5.0); Alkaline Phosphatase 119 U/L (46-116); Anion Gap 8.9 mmol/L (3-11); BUN 24 mg/dL (7-18); Bilirubin, Total 0.3 mg/dL (0.2-1.0); CO2 27.1 mmol/L (21.0-32.0); CREATININE 1.2 mg/dL (0.55-1.02); Calcium 9.5 mg/dL (8.5-10.1); Chloride 104 mmol/L (98-107); Estimated GFR 49.31 (mL/min/1.73m2); Glucose 93 mg/dL (74-106); Potassium 3.6 mmol/L (3.5-5.1); Sodium 140 mmol/L (136-145); Total Protein 7.2 g/dL (6.4-8.2)
== END 2022-03-28 16:01 | disposition home or self-care (01) ==
LOC: NCHCN 16:00
PROVIDERS: PCP Internal Medicine; Visit Provider Physician Assistant
DX: R73.03 Prediabetes (principal); R74.8 Abnormal levels of other serum enzymes
CPT/HCPCS: 80053

== ENCOUNTER 2022-12-25 14:54 | Outpatient (REF) | payer MEDICARE, SELFPAY ==
[2022-12-25 19:33] LABS: HCT 41.5 % (36.0-46.0); HGB 13.8 g/dL (11.2-15.7); MCH 31.2 pg (27.0-33.0); MCHC 33.3 % (32.0-36.0); MCV 94 fL (80-95); MPV 9.8 fL (8.0-11.0); Platelet Count 317 10^3/uL (130-400); RBC 4.43 10^6/uL (3.93-5.22); RDW 13.6 % (11.7-14.6); RDW-SD 46.6 fL; WBC 9.82 10^3/uL (4.4-10.8)
[2022-12-25 19:48] LABS: ALT 34 U/L (14-59); AST 20 U/L (15-37); Albumin 3.7 g/dL (3.4-5.0); Alkaline Phosphatase 134 U/L (46-116); Anion Gap 9.3 mmol/L (3-11); BUN 22 mg/dL (7-18); Bilirubin, Total 0.5 mg/dL (0.2-1.0); CO2 28.7 mmol/L (21.0-32.0); CREATININE 1.1 mg/dL (0.55-1.02); Chloride 104 mmol/L (98-107); Estimated GFR 54.39 (mL/min/1.73m2); Glucose 101 mg/dL (74-106); Potassium 3.6 mmol/L (3.5-5.1); Sodium 142 mmol/L (136-145); Total Protein 7.6 g/dL (6.4-8.2)
== END 2022-12-25 14:55 | disposition home or self-care (01) ==
LOC: NCHCN 14:54
PROVIDERS: PCP Internal Medicine; Visit Provider Physician Assistant
DX: I10 Essential (primary) hypertension (principal); R74.8 Abnormal levels of other serum enzymes
CPT/HCPCS: 80053; 85027

== ENCOUNTER 2023-12-31 13:59 | Outpatient (REF) | payer MEDICARE, SELFPAY ==
--- OUTSIDE RECORDS SUMMARY | 2023-12-31 14:01 | XMS_ITS | Continuity of Care Document ---
Author Name Unknown Organization [facility] Address [address] [place] [address] Care Team Providers Care Brands Editor Name Role Phone Bhavana Galicia Primary Care Physician Encounter [facility] Date(s): 01/07/23 - 01/07/[address] [id number] Discharge Disposition: Home or Self Care Attending Physician: Bhavana Galicia PA-C Admitting Physician: Bhaavna Galicia PA-C Referring Physician: Bhavana Galicia PA-C Allergies, Adverse Reactions, Alerts No Known Medication Allergies Social History Social History Type Response Sex Female Patient Care team information Care Team Personnel Name: Bhavana Galicia PA-C Position: PowerChart View Only Member Role: Primary Care Physician Address: Address: [address] Care Team Related Persons Name: JAIME PHELPS Address: Home Name: [place] Address: [place] [address] Address: Home [address] [place] [address]
[2023-12-31 18:21] LABS: ALT 40 U/L (14-59); AST 24 U/L (15-37); Albumin 3.7 g/dL (3.4-5.0); Alkaline Phosphatase 117 U/L (46-116); Anion Gap 6.4 mmol/L (3-11); BUN 17 mg/dL (7-18); Bilirubin, Total 0.47 mg/dL (0.2-1.0); CO2 29.6 mmol/L (21.0-32.0); CREATININE 1.2 mg/dL (0.55-1.02); Calcium 10.3 mg/dL (8.5-10.1); Calculated LDL 90 mg/dL (<100); Chloride 106 mmol/L (98-107); Cholesterol 173 mg/dL (<200); Glucose 106 mg/dL (74-106); HDL Cholesterol 63 mg/dL (40-60); Sodium 142 mmol/L (136-145); Total Protein 7.3 g/dL (6.4-8.2); Triglyceride 101 mg/dL (<150)
[2023-12-31 18:28] LABS: HCT 44.4 % (36.0-46.0); HGB 14.5 g/dL (11.2-15.7); MCH 31.6 pg (27.0-33.0); MCHC 32.7 % (32.0-36.0); MCV 97 fL (80-95); Platelet Count 309 10^3/uL (130-400); RBC 4.59 10^6/uL (3.93-5.22); RDW 13.8 % (11.7-14.6); RDW-SD 49.3 fL; WBC 6.72 10^3/uL (4.4-10.8)
== END 2023-12-31 14:00 | disposition home or self-care (01) ==
LOC: NCHCN 13:59
PROVIDERS: PCP Internal Medicine; Visit Provider Physician Assistant
DX: I10 Essential (primary) hypertension (principal); E78.5 Hyperlipidemia, unspecified
CPT/HCPCS: 80053; 80061; 85027

== ENCOUNTER 2024-11-03 15:17 | Outpatient (REF) | payer MEDICARE, SELFPAY ==
[2024-11-03 19:30] LABS: Abs Immature Grans 0.06 10^3/uL (0.0-0.06); Absolute Basophil Count 0.06 10^3/uL (0.0-0.2); Absolute Eosinophil Count 0.17 10^3/uL (0.0-0.7); Absolute Lymphocyte Count 2.97 10^3/uL (1.2-3.4); Basophils % 0.5 %; Eosinophils % 1.5 %; HCT 40.5 % (36.0-46.0); HGB 13.3 g/dL (11.2-15.7); Immature Grans % 0.5 %; Lymphocytes % 25.5 %; MCH 31.9 pg (27.0-33.0); MCHC 32.8 % (32.0-36.0); MCV 97 fL (80-95); MPV 9.8 fL (8.0-11.0); Platelet Count 273 10^3/uL (130-400); RBC 4.17 10^6/uL (3.93-5.22); RDW 15.2 % (11.7-14.6); RDW-SD 54.2 fL; WBC 11.66 10^3/uL (4.4-10.8)
[2024-11-03 19:49] LABS: ALT 40 U/L (14-59); AST 25 U/L (15-37); Albumin 3.1 g/dL (3.4-5.0); Alkaline Phosphatase 113 U/L (46-116); Anion Gap 7.9 mmol/L (3-11); BUN 20 mg/dL (7-18); Bilirubin, Total 0.4 mg/dL (0.2-1.0); CO2 28.1 mmol/L (21.0-32.0); Calcium 9.3 mg/dL (8.5-10.1); Chloride 108 mmol/L (98-107); Estimated GFR 60.23 (mL/min/1.73m2); Glucose 122 mg/dL (74-106); Potassium 4.1 mmol/L (3.5-5.1); Sodium 144 mmol/L (136-145); Total Protein 6.5 g/dL (6.4-8.2)
== END 2024-11-03 15:18 | disposition home or self-care (01) ==
LOC: NCHCN 15:17
PROVIDERS: PCP Internal Medicine; Visit Provider Physician Assistant
DX: N18.9 Chronic kidney disease, unspecified (principal)
CPT/HCPCS: 80053; 85025